=== PATIENT | male | born 1970 | race Caucasian/White ===

== ENCOUNTER 2016-11-30 07:16 | Emergency (ER) | payer BC ==
[2016-11-30 07:30] VITALS: BP 133/87
[2016-11-30] MEDS ORDERED: Ketorolac INJ* 60 MG/2 ML VIAL IM ONE (07:36)
--- NOTE | 2016-11-30 07:39 | UC ---
General HPI - HPI Summary HPI Summary: The patient comes in today for: 1. Right flank plank: Onset: 4-5 days ago. Palliative/provocative: Quality: Pressure Region: Right flank radiating down to the right testicle which feels like it is in a vice. Severity: 8.5/10 Time: Comes and goes. Associated symptoms: Previous disease: "A couple years ago" he had right flank pain and it was found to be from a kidney stone. He said that he passed. He has had gastric sleeve done and was told then that such a procedure increases his risk of kidney stones. Hematuria: Present. Urology: He has not seen one. Urinary frequency: He feels like he needs to urinate more. Urinary urgency: None. Dysuria: None. Kidney disease: None other than stones. * - History of Current Complaint Chief Complaint: UCAbdominalPain Stated Complaint: ABDOMINAL COMPLAINT Time Seen by Provider: 11/30/16 07:33 Hx Obtained From: Patient - Allergy/Home Medications Allergies/Adverse Reactions: Allergies Allergy/AdvReac Type Severity Reaction Status Date / Time enteric coating Allergy Hives Uncoded 08/31/16 06:31 PMH/Surg Hx/FS Hx/Imm Hx Previously Healthy: No - Gastric sleeve surgery. Endocrine History Of: Reports: Dyslipidemia Denies: Diabetes, Thyroid Disease, Hyperthyroidism, Hypothyroidism Cardiovascular History Of: Reports: Cardiac Disorders - stents after mi, Myocardial Infarction Denies: Hypertension, Pacemaker/ICD, Congestive Heart Failure, Atrial Fibrillation, Deep Vein Thrombosis, Bleeding Disorders Respiratory History Of: Denies: COPD, Asthma, Bronchitis, Pneumonia, Pulmonary Embolism GI/ History Of: Reports: Kidney Stones - 07/12 Denies: Gastroesophageal Reflux, Ulcer, Gastrointestinal Bleed, Gall Bladder Disease, Diverticulitis, Renal Disease, Urosepsis Neurological History Of: Denies: TIA, CVA, Dementia, Seizures, Migraine Psychological History Of: Denies: Anxiety, Depression, Bipolar Disorder, Schizophrenia, Post Traumatic Stress Disorder Cancer History Of: Denies: Lung Cancer, Colorectal Cancer, Breast Cancer, Prostate Cancer, Cervical Cancer Other History Of: Anticoagulant Therapy - Supposed to take 81 mg aspirin/day, but has been off x 1 mo. Negative For: HIV, Hepatitis B, Hepatitis C - Surgical History Surgical History: Yes Surgery Procedure, Year, and Place: 2014 cardiac stent, gastric sleeve - Family History Known Family History: Negative: Cardiac Disease, Hypertension - Social History Occupation: Employed Full-time Alcohol Use: None Substance Use Type: None Smoking Status (MU): Current Every Day Smoker Type: Cigarettes When Did the Patient Quit Smoking/Using Tobacco: 1.5months ago - uses nicotine lozengers Household Exposure Type: Cigarettes - Immunization History Most Recent Influenza Vaccination: never Most Recent Tetanus Shot: 2015 Most Recent Pneumonia Vaccination: never Review of Systems Constitutional: Negative Skin: Negative Eyes: Negative ENT: Negative Respiratory: Negative Cardiovascular: Negative Gastrointestinal: Negative Genitourinary: Frequency Musculoskeletal: Arthralgia All Other Systems Reviewed And Are Negative: Yes Physical Exam Triage Information Reviewed: Yes Appearance: Well-Appearing, Well-Nourished, Pain Distress - He is doing well with no grimacing, but is slow in movement. Vital Signs: Initial Vital Signs Temp 98.2 F 11/30/16 07:23 Pulse 75 11/30/16 07:23 Resp 16 11/30/16 07:23 BP 133/87 11/30/16 07:23 Pulse Ox 97 11/30/16 07:23 Vital Signs Reviewed: Yes Eyes: Positive: Conjunctiva Clear. Negative: Discharge ENT: Positive: Hearing grossly normal. Negative: Pharyngeal erythema, Nasal congestion, Nasal drainage, TM bulging, TM dull, TM red, Tonsillar swelling, Tonsillar exudate Dental: Negative: Gross Decay/Caries @, Dental Fracture @ Neck: Positive: Supple, Nontender, No Lymphadenopathy. Negative: Nuchal Rigidity Respiratory: Positive: Chest non-tender, Lungs clear, No respiratory distress, No accessory muscle use. Negative: Crackles, Wheezing Cardiovascular: Positive: RRR, No Murmur Abdomen Description: Positive: No Organomegaly, Soft, McBurney's Point Tenderness. Negative: Nontender - He had tenderness of the right lower quadrant area., Distended, Guarding, Peritoneal Signs, Pulsatile Mass Musculoskeletal: Positive: Strength Intact, ROM Intact, No Edema Neurological: Positive: Alert, Muscle Tone Normal Psychological: Positive: Age Appropriate Behavior, Consolable Skin: Negative: rashes, breakdown UC Physical Exam Vital Signs On Initial Exam: Initial Vitals Temp Pulse Resp BP Pulse Ox 98.2 F 75 16 133/87 97 11/30/16 07:23 11/30/16 07:23 11/30/16 07:23 11/30/16 07:23 11/30/16 07:23 - Genitalia Exam Male Genitalia: Other - Right testicular exam: No masses. Minimal tenderness by his report. Diagnostics - Laboratory Diagnostic Studies Completed/Ordered: Urine screen: Specific gravity: Blood: present. Protein: trace. WBC: None. Glucose: None. - Radiology No standard instances Xray Interpretation: Positive (See Comments) - Positive renal stone on the right. Course/Dx - Course Course Of Treatment: Patient told of his positive CT scan. He states that in the past, he has had similar abdominal pain/tenderness with his past renal stones. - Differential Dx - Multi-Symptom Provider Diagnoses: Bilateral renal stones. Discharge - Discharge Plan Condition: Stable Disposition: HOME Patient Education Materials: Kidney Stones (ED) Forms: *Work Release Referrals: John Yuan MD [Primary Care Provider] - Junior Palma MD [Medical Doctor] - As Soon As Possible (Please call the urologists office as soon as you can for follow up on your kidney stones.)
--- NOTE | 2016-11-30 08:26 | RAD ---
INDICATION: Right flank pain. History of renal stones. Prior gastric sleeve surgery. COMPARISON: None TECHNIQUE: Noncontrast axial source images were acquired from the level hemidiaphragms to the symphysis pubis as part of CT imaging for renal stone. Lung bases: The lung bases are clear. Liver: The liver is normal in size. Noncontrast imaging shows no evidence of a hepatic mass or ductal dilatation. Gallbladder: There are no calcified gallstones. There is no evidence of wall thickening or pericholecystic fluid.. Spleen: The spleen is normal in size. The noncontrast CT appearance is normal. Pancreas: Noncontrast imaging shows no pancreatic mass or ductal dilitation. Adrenal glands: No masses are identified. Kidneys/Bladder: There is a 3 mm calculus at the right UVJ with resultant moderate obstructive findings. There are additional nonobstructive right renal calculi in the upper and lower pole which measure 1 to 2 mm. On the left there is a 2 mm upper pole calculus and a 2 mm lower pole calculus there are no ureteral calculi. Adenopathy: There is no evidence of intraperitoneal or retroperitoneal adenopathy. Evaluation is limited without oral contrast. Fluid collections: There are no free or localized fluid collections. Vessels: The aorta and iliac vessels are normal in caliber. There are no significant atherosclerotic changes. The IVC appears normal Pelvic organs: The prostate and seminal vesicles appear normal GI tract: Evaluation of the bowel is limited without oral contrast. There is gastric sleeve surgery. The small bowel, and lower GI tract appear grossly normal. There are no obstructive findings. The appendix is visualized and appears normal. Soft tissues: No soft tissue abnormalities of the extraperitoneal abdomen or pelvis are identified. Osseous structures: There are no acute osseous findings. IMPRESSION: 3 MM RIGHT UVJ CALCULUS WITH MILD OBSTRUCTIVE FINDINGS. ADDITIONAL, BILATERAL, NONOBSTRUCTIVE RENAL CALCULI.
== END 2016-11-30 08:51 | disposition home or self-care (01) ==
LOC: UCEAST 07:16
DX: N20.0 Calculus of kidney (principal); Z87.442 Personal history of urinary calculi; E78.5 Hyperlipidemia, unspecified; I21.3 ST elevation (STEMI) myocardial infarction of unspecified site; Z95.5 Presence of coronary angioplasty implant and graft; Z98.84 Bariatric surgery status; F17.210 Nicotine dependence, cigarettes, uncomplicated
CPT/HCPCS: 74176; 81003; 99212; G0463; J1885

== ENCOUNTER 2017-06-21 11:23 | Emergency (ER) | payer BC ==
--- NOTE | 2017-06-21 12:26 | UC ---
Back Pain HPI - HPI Summary HPI Summary: 47 YEAR OLD MALE PRESENTS WITH BILATERAL FLANK PAIN RADIATING TO THE TESTICLES. - History of Current Complaint Stated Complaint: LOWER BACK PAIN/ TESTICULAR PAIN Time Seen by Provider: 06/21/17 12:25 Hx Obtained From: Patient Onset/Duration: Sudden Onset Timing: Constant Severity Initially: Moderate Severity Currently: Moderate Pain Scale Used: 0-10 Numeric - 8 - Allergies/Home Medications Allergies/Adverse Reactions: Allergies Allergy/AdvReac Type Severity Reaction Status Date / Time No Known Allergies Allergy Verified 06/21/17 13:17 Home Medications: Home Medications Atorvastatin* 80 mg PO 06/21/17 [History] PMH/Surg Hx/FS Hx/Imm Hx Other History Of: Anticoagulant Therapy - Supposed to take 81 mg aspirin/day, but has been off x 1 mo. Negative For: HIV, Hepatitis B, Hepatitis C - Surgical History Surgical History: Yes Surgery Procedure, Year, and Place: 2014 cardiac stent, gastric sleeve - Family History Known Family History: Positive: None - denies FMHx coronary artery disease Negative: Cardiac Disease, Hypertension - Social History Alcohol Use: None Substance Use Type: None Smoking Status (MU): Current Every Day Smoker Type: Cigarettes When Did the Patient Quit Smoking/Using Tobacco: 1.5months ago - uses nicotine lozengers Household Exposure Type: Cigarettes - Immunization History Most Recent Influenza Vaccination: never Most Recent Tetanus Shot: 2014 Most Recent Pneumonia Vaccination: never Review of Systems Constitutional: Negative Skin: Negative Eyes: Negative ENT: Negative Respiratory: Negative Cardiovascular: Negative Gastrointestinal: Abdominal Pain - BILATERAL FLANK PAIN Genitourinary: Hematuria Motor: Negative Neurovascular: Negative Musculoskeletal: Negative Neurological: Negative Psychological: Negative Is Patient Immunocompromised?: Yes All Other Systems Reviewed And Are Negative: Yes Physical Exam Triage Information Reviewed: Yes Eye Exam: Normal ENT Exam: Normal Dental Exam: Normal Neck exam: Normal Neck: Positive: 1 Respiratory Exam: Normal Cardiovascular Exam: Normal Abdomen Description: Positive: Other: - BILATERAL FLANK PAIN Musculoskeletal Exam: Normal Neurological Exam: Normal Psychological Exam: Normal Skin Exam: Normal Back Pain Course/Dx - Differential Dx/Diagnosis Provider Diagnoses: BILATERAL FLANK PAIN. HEMATURIA Discharge - Discharge Plan Condition: Stable Disposition: OTHER Discharge Disposition Comment: PATIENT SUGGESTED TO GO TO THE ER. Patient Education Materials: Hematuria (ED), Flank Pain (ED) Referrals: Ramiro Osborne MD [Primary Care Provider] - Additional Instructions: patient suggested to go to er to rule out renal calculi. and severe flank pain.
[2017-06-21 12:28] VITALS: BP 106/64
== END 2017-06-21 12:39 ==
LOC: UCEAST 11:23
DX: R10.9 Unspecified abdominal pain (principal); F17.210 Nicotine dependence, cigarettes, uncomplicated; R31.9 Hematuria, unspecified
CPT/HCPCS: 81003; 99212; G0463

== ENCOUNTER 2017-06-21 13:10 | Emergency (ER) | payer BC ==
[2017-06-21] MEDS ORDERED: NS 0.9% 1000 ML* 1,000 ML IV ONE (13:40)
[2017-06-21] MEDS ORDERED: Ondansetron INJ* 2 MG/ML VIAL IV ONE (13:40)
[2017-06-21] MEDS ORDERED: Ketorolac INJ* 30 MG/ML 1 ML VIAL IV ONE (13:40)
--- NOTE | 2017-06-21 14:09 | RAD ---
INDICATION: Abdominal pain. History of kidney stones. COMPARISON: CT November 30, 2016 TECHNIQUE: Noncontrast axial source images were acquired from the level hemidiaphragms to the symphysis pubis as part of CT imaging for renal stone. Lung bases: The lung bases are clear. Liver: The liver is normal in size. Noncontrast imaging shows no evidence of a hepatic mass or ductal dilatation. Gallbladder: There are no calcified gallstones. There is no evidence of wall thickening or pericholecystic fluid.. Spleen: The spleen is normal in size. The noncontrast CT appearance is normal. Pancreas: Noncontrast imaging shows no pancreatic mass or ductal dilitation. Adrenal glands: No masses are identified. Kidneys/Bladder: There is a 3 to 4 mm right UVJ calculus producing mild obstructive findings. There are additional tiny nonobstructive renal calculi bilaterally which measure 1 to 2 mm. There is no renal mass on noncontrast evaluation. Adenopathy: There is no evidence of intraperitoneal or retroperitoneal adenopathy. Evaluation is limited without oral contrast. Fluid collections: There are no free or localized fluid collections. Vessels: The aorta and iliac vessels are normal in caliber. There are no significant atherosclerotic changes. The IVC appears normal Pelvic organs: The uterus and adnexa appear normal GI tract: There is bariatric surgery. The upper GI tract is otherwise unremarkable. The lower GI tract including the appendix appears normal aside from scant diverticula of the sigmoid colon. Soft tissues: No soft tissue abnormalities of the extraperitoneal abdomen or pelvis are identified. Osseous structures: There are no acute osseous findings. There is spurring involving the anterior superior aspect of the L4 vertebral body with a detached bony fragment appearing unchanged and likely related to prior trauma. IMPRESSION: 3 TO 4 MM RIGHT UVJ CALCULUS WITH MILD OBSTRUCTIVE FINDINGS. ADDITIONAL NONOBSTRUCTIVE RENAL CALCULI. BARIATRIC SURGERY.
[2017-06-21 14:30] LABS: Hematocrit 40 % (42-52); Hemoglobin 13.8 g/dl (14.0-18.0); Mean Corpuscular HGB Conc 34 g/dl (31-36); Mean Corpuscular Hemoglobin 32 pg (27-31); Mean Corpuscular Volume 94 fL (80-94); Mean Platelet Volume 8 um3 (7.4-10.4); Red Blood Count 4.26 10^6/ul (4.0-5.4); Red Cell Distribution Width 13 % (10.5-15); White Blood Count 8.6 10^3/ul (3.5-10.8)
[2017-06-21 14:51] LABS: ALT 11 U/L (7-52); AST 13 U/L (13-39); Albumin 3.7 g/dL (3.2-5.2); Alkaline Phosphatase 74 U/L (34-104); Anion Gap 2 mmol/L (2-11); BUN/Creatinine Ratio 13.9 (8-20); Blood Urea Nitrogen 11 mg/dL (6-24); C Reactive Protein < 1.00 mg/L (< 5.00); CO2 Carbon Dioxide 29 mmol/L (22-32); Calcium 8.8 mg/dL (8.6-10.3); Chloride 109 mmol/L (101-111); EGFR African American 136.4 (>60); EGFR Non-African American 106.1 (>60); Globulin 2.5 g/dL (2-4); Glucose 83 mg/dL (70-100); Lipase 22 U/L (11.0-82.0); Potassium 3.5 mmol/L (3.5-5.0); Sodium 140 mmol/L (133-145); Total Protein 6.2 g/dL (6.4-8.9)
[2017-06-21] MEDS ORDERED: Pantoprazole TAB (NF) 40 MG TAB PO ONE (14:52)
[2017-06-21] MEDS ORDERED: Omeprazole CAP* 20 MG PO ONE (15:00)
[2017-06-21 15:02] LABS: Urine Bacteria Absent (Absent); Urine Bilirubin Negative (Negative); Urine Glucose Negative (Negative); Urine Nitrite Negative (Negative)
[2017-06-21 16:33] VITALS: BP 118/74
--- NOTE | 2017-06-22 18:33 | ED ---
Reginald Hightower Angela, scribed for John Roberson MD on 06/21/17 at 1414 . Abdominal Pain/Male - HPI Summary HPI Summary: This pt is a 47 y/o male [facility] c/o bilateral flank pain x3-6 days. Pt reports that he has pain radiating for his right side to his right testicle. Pt states he also has pain on his left side. He currently rates his pain 6/10 in severity. He has a history of kidney stones and states that this feels like it. Pt additionally c/o nausea and cold sweats. He denies fever, vomiting. Pt has not taken any pain medications. PMHx: kidney stones, his last one was approximately 6 months ago. - History of Current Complaint Chief Complaint: EDAbdPain Stated Complaint: FLANK PAIN,BLOOD IN URINE-SENT FROM Time Seen by Provider: 06/21/17 13:57 Hx Obtained From: Patient Onset/Duration: Lasting Days, Still Present Timing: Lasting Days Pain Intensity: 6 Pain Scale Used: 0-10 Numeric Location: Flank - bilateral Radiates: Yes Radiates to: Other - right testicle Associated Signs And Symptoms: Positive: Nausea, Other - cold sweats.. Negative : Fever, Vomiting, Diarrhea - Allergies/Home Medications Allergies/Adverse Reactions: Allergies Allergy/AdvReac Type Severity Reaction Status Date / Time No Known Allergies Allergy Verified 06/21/17 13:17 PMH/Surg Hx/FS Hx/Imm Hx Endocrine/Hematology History: Reports: Hx Anticoagulant Therapy - Supposed to take 81 mg aspirin/day, but has been off x 1 mo. Denies: Hx Diabetes, Hx Thyroid Disease Cardiovascular History: Reports: Hx Angina, Hx Coronary Artery Disease, Hx Hypercholesterolemia, Hx Myocardial Infarction, Other Cardiovascular Problems/ Disorders - stent 10/2104 Denies: Hx Congestive Heart Failure, Hx Deep Vein Thrombosis, Hx Hypertension , Hx Pacemaker/ICD, Hx Peripheral Vascular Disease, Hx Valvular Heart Disease Respiratory History: Reports: Hx Sleep Apnea, Other Respiratory Problems/ Disorders - smoker, current cough Denies: Hx Asthma, Hx Chronic Obstructive Pulmonary Disease (COPD), Hx Lung Cancer, Hx Pneumonia, Hx Pulmonary Embolism GI History: Denies: Hx Cirrhosis, Hx Gall Bladder Disease, Hx Gastrointestinal Bleed, Hx Ulcer, Hx Urosepsis History: Reports: Hx Kidney Stones - 07/12 Denies: Hx Renal Disease Musculoskeletal History: Reports: Hx Back Problems, Hx Gout Denies: Hx Arthritis, Hx Osteoporosis Sensory History: Denies: Hx Cataracts, Hx Contacts or Glasses, Hx Glaucoma, Hx Hearing Aid Opthamlomology History: Denies: Hx Cataracts, Hx Contacts or Glasses, Hx Glaucoma Neurological History: Denies: Hx Dementia, Hx Headaches, Hx Migraine, Hx Seizures, Hx Transient Ischemic Attacks (TIA) Psychiatric History: Denies: Hx Anxiety, Hx Depression, Hx Schizophrenia, Hx Bipolar Disorder - Surgical History Surgery Procedure, Year, and Place: 2014 cardiac stent, gastric sleeve Hx Anesthesia Reactions: No Infectious Disease History: No Infectious Disease History: Denies: Hx Hepatitis, Hx Human Immunodeficiency Virus (HIV), History Other Infectious Disease, Traveled Outside the [place] in Last 30 Days - Family History Known Family History: Negative: Cardiac Disease, Hypertension - Social History Alcohol Use: None Substance Use Type: Reports: None Hx Tobacco Use: Yes Smoking Status (MU): Current Every Day Smoker Type: Cigarettes Review of Systems Negative: Fever, Chills Eyes: Negative ENT: Negative Cardiovascular: Negative Positive: Nausea. Negative: Vomiting Positive: flank pain - bilateral Skin: Negative Neurological: Negative All Other Systems Reviewed And Are Negative: Yes Physical Exam - Summary Physical Exam Summary: VITAL SIGNS: Reviewed. GENERAL: Patient is a well-developed and nourished male who is lying comfortable in the stretcher. Patient is not in any acute respiratory distress. HEAD AND FACE: Normocephalic and atraumatic. EYES: PERRLA, EOMI x 2, No injected conjunctiva. EARS: Hearing grossly intact. Ear canals and tympanic membranes are WNL. MOUTH: Oropharynx within normal limits. NECK: Supple, trachea is midline, no adenopathy, no JVD. CHEST: Symmetric, no tenderness at palpation LUNGS: Clear to auscultation bilaterally. No wheezing or crackles. CVS: RRR, S1 and S2 present, no murmurs or gallops appreciated. ABDOMEN: Soft, non-tender. No signs of distention. Positive bowel sounds. No rebound no guarding, and no masses palpated. No abdominal bruit or pulsations. There is bilateral costovertebral angle tenderness. EXTREMITIES: FROM in all major joints, no edema, no cyanosis or clubbing. NEURO: Alert and oriented x 3. No acute neurological deficits. Speech is normal. SKIN: Dry and warm Triage Information Reviewed: Yes Vital Signs On Initial Exam: Initial Vitals Temp Pulse Resp BP Pulse Ox 97.5 F 77 16 127/82 100 06/21/17 13:17 06/21/17 13:17 06/21/17 13:17 06/21/17 13:17 06/21/17 13:17 Vital Signs Reviewed: Yes Diagnostics - Vital Signs Vital Signs Temp Pulse Resp BP Pulse Ox 06/21/17 13:17 97.5 F 77 16 127/82 100 - Laboratory Lab Results: Lab Results 06/21/17 06/21/17 06/21/17 Range/Units 14:15 14:15 14:46 WBC 8.6 (3.5-10.8) 10^3/ul RBC 4.26 (4.0-5.4) 10^6/ul Hgb 13.8 L (14.0-18.0) g/dl Hct 40 L (42-52) % MCV 94 (80-94) fL MCH 32 H (27-31) pg MCHC 34 (31-36) g/dl RDW 13 (10.5-15) % Plt Count 231 (150-450) 10^3/ul MPV 8 (7.4-10.4) um3 Neut % (Auto) 53.5 (38-83) % Lymph % (Auto) 36.2 (25-47) % [place] % (Auto) 7.4 (1-9) % Eos % (Auto) 2.4 (0-6) % Baso % (Auto) 0.5 (0-2) % Absolute Neuts (auto) 4.6 (1.5-7.7) 10^3/ul Absolute Lymphs (auto) 3.1 (1.0-4.8) 10^3/ul Absolute Monos (auto) 0.6 (0-0.8) 10^3/ul Absolute Eos (auto) 0.2 (0-0.6) 10^3/ul Absolute Basos (auto) 0 (0-0.2) 10^3/ul Absolute Nucleated RBC 0 10^3/ul Nucleated RBC % 0 Sodium 140 (133-145) mmol/L Potassium 3.5 (3.5-5.0) mmol/L Chloride 109 (101-111) mmol/L Carbon Dioxide 29 (22-32) mmol/L Anion Gap 2 (2-11) mmol/L BUN 11 (6-24) mg/dL Creatinine 0.79 (0.67-1.17) mg/dL Est GFR ( Amer) 136.4 (>60) Est GFR (Non-Af Amer) 106.1 (>60) BUN/Creatinine Ratio 13.9 (8-20) Glucose 83 (70-100) mg/dL Calcium 8.8 (8.6-10.3) mg/dL Total Bilirubin 0.40 (0.2-1.0) mg/dL AST 13 (13-39) U/L ALT 11 (7-52) U/L Alkaline Phosphatase 74 (34-104) U/L C-Reactive Protein < 1.00 (< 5.00) mg/L Total Protein 6.2 L (6.4-8.9) g/dL Albumin 3.7 (3.2-5.2) g/dL Globulin 2.5 (2-4) g/dL Albumin/Globulin Ratio 1.5 (1-3) Lipase 22 (11.0-82.0) U/L Urine Color Yellow Urine Appearance Cloudy Urine pH 7.0 (5-9) Ur Specific [place] 1.019 (1.010-1.030) Urine Protein Negative (Negative) Urine Ketones Negative (Negative) Urine Blood 3+ H (Negative) Urine Nitrate Negative (Negative) Urine Bilirubin Negative (Negative) Urine Urobilinogen Positive H (Negative) Ur Leukocyte Esterase Negative (Negative) Urine WBC (Auto) Trace(0-5/hpf) (Absent) Urine RBC (Auto) 3+(>10/hpf) H (Absent) Urine Bacteria Absent (Absent) Urine Glucose Negative (Negative) Result Diagrams: 06/21/17 14:15 06/21/17 14:15 Lab Statement: Any lab studies that have been ordered have been reviewed, and results considered in the medical decision making process. - CT Abdomen/pelvis CT CT Interpretation: Positive (See Comments) - IMPRESSION: 3 to 4 mm right UVJ calculus with mild obstructive findings. Additional nonobstructing renal calculi. Bariatric surgery. ED physician has reviewed this radiology report and agrees. CT Interpretation Completed By: Radiologist Abdominal Pain Fem Course/Dx - Course Assessment/Plan: This pt is a 47 y/o male presenting to [facility] c/o bilateral flank pain x3-6 days. Pt reports that he has pain radiating for his right side to his right testicle. Pt states he also has pain on his left side. He currently rates his pain 6/10 in severity. He has a history of kidney stones and states that this feels like it. Pt additionally c/o nausea and cold sweats. He denies fever, vomiting. Pt has not taken any pain medications. PMHx: kidney stones, his last one was approximately 6 months ago. Tests results without any significant abnormal except for slight anemia. Abdomen/Pelvis CT shows 3 to 4 mm right UVJ calculus with mild obstructive findings. Additional nonobstructing renal calculi. Bariatric surgery. In the ED course, the pt was given IV fluids , Zofran for nausea, and Toradol for the pain. Pt requested protonix for his GERD. After these medications his symptoms have improved. Therefore, he will be discharged home with follow up from his PCP. - Diagnoses Differential Diagnosis/HQI/PQRI: Bowel Obstruction, Constipation, Renal Colic, Ureteral Stone, Urinary Tract Infection Provider Diagnoses: Kidney stones Discharge - Discharge Plan Condition: Stable Disposition: HOME Prescriptions: oxyCODONE TAB* [Roxycodone TAB 5 mg*] 5 mg PO Q6H PRN #12 tab MDD 4 PRN Reason: Pain Patient Education Materials: Kidney Stones (ED) Referrals: Ramiro Osborne MD [Primary Care Provider] - Additional Instructions: Please follow up with your primary care provider. RETURN TO THE ED FOR ANY WORSENING SYMPTOMS. The documentation as recorded by the Reginald lima Angela accurately reflects the service I personally performed and the decisions made by , John Roberson MD.
== END 2017-06-21 16:34 | disposition home or self-care (01) ==
LOC: ED 13:10
DX: N20.2 Calculus of kidney with calculus of ureter (principal); Z87.442 Personal history of urinary calculi; R11.0 Nausea; R68.83 Chills (without fever); E07.9 Disorder of thyroid, unspecified; I25.119 Atherosclerotic heart disease of native coronary artery with unspecified angina pectoris; Z95.5 Presence of coronary angioplasty implant and graft; I21.9 Acute myocardial infarction, unspecified; E78.00 Pure hypercholesterolemia, unspecified; F17.210 Nicotine dependence, cigarettes, uncomplicated
CPT/HCPCS: 36415; 74176; 80053; 81003; 81015; 83690; 85025; 86140; 96374; 96375; 99283; A9270-GY; J1885; J2405

== ENCOUNTER 2019-08-23 12:13 | Emergency (ER) | payer BC ==
[2019-08-23 12:27] VITALS: BP 114/71
--- NOTE | 2019-08-23 12:34 | UC ---
Dental HPI - HPI Summary HPI Summary: 49 yo male presents with sinus symptoms. He tells me that over the last 5 days he has had sinus pain/pressure/congestion. Over the last day has noticed increased pain/pressure on the right side with right earache and right upper toothache. Has been taking dayquill OTC with no relief. Denies fever, chills, sore throat, cough. - History of Current Complaint Chief Complaint: UCGeneralIllness Stated Complaint: SINUS ISSUE EAR PAIN DENTAL PAIN Time Seen by Provider: 08/23/19 12:33 Hx Obtained From: Patient Onset/Duration: Gradual Onset Severity: Moderate Pain Intensity: 6 Pain Scale Used: 0-10 Numeric - Allergies/Home Medications Allergies/Adverse Reactions: Allergies Allergy/AdvReac Type Severity Reaction Status Date / Time No Known Allergies Allergy Verified 06/21/17 13:17 Home Medications: Home Medications Omeprazole 1 tab PO DAILY 08/23/19 [History Confirmed 08/23/19] PMH/Surg Hx/FS Hx/Imm Hx Endocrine History: Dyslipidemia Cardiovascular History: Cardiac Disease GI/ History: Gastroesophageal Reflux Other History Of: Anticoagulant Therapy - Supposed to take 81 mg aspirin/day, but has been off x 1 mo. Negative For: HIV, Hepatitis B, Hepatitis C - Surgical History Surgical History: Yes Surgery Procedure, Year, and Place: 2014 cardiac stent, gastric sleeve - Family History Known Family History: Positive: None - denies FMHx coronary artery disease Negative: Cardiac Disease, Hypertension - Social History Lives: With Family Alcohol Use: None Substance Use Type: None Smoking Status (MU): Current Every Day Smoker Type: Cigarettes When Did the Patient Quit Smoking/Using Tobacco: 1.5months ago - uses nicotine lozengers Household Exposure Type: Cigarettes - Immunization History Most Recent Influenza Vaccination: never Most Recent Tetanus Shot: 2014 Most Recent Pneumonia Vaccination: never Review of Systems All Other Systems Reviewed And Are Negative: No Constitutional: Positive: Negative Skin: Positive: Negative Eyes: Positive: Negative ENT: Positive: Ear Ache, Nasal Discharge, Sinus Congestion, Sinus Pain/ Tenderness Respiratory: Positive: Negative Cardiovascular: Positive: Negative Gastrointestinal: Positive: Negative Neurological: Positive: Negative Psychological: Positive: Negative Physical Exam - Summary Physical Exam Summary: GENERAL: NAD. WDWN. No pain distress. SKIN: No rashes, sores, lesions, or open wounds. HEENT: Head: AT/NC Eyes: EOM intact. Conjunctiva clear without inflammation or discharge. Ears: Hearing grossly normal. TMs intact, no bulging, erythema, or edema. Nose: Nasal mucosa mildly swollen and erythematous with yellow/ clear discharge. TTP maxillary sinus RIGHT > LEFT. Positive post nasal drip Throat: Posterior oropharynx without exudates, erythema, or tonsillar enlargement. Uvula midline. NECK: Supple. Nontender. No lymphadenopathy. CHEST: CTAB. No r/r/w. No accessory muscle use. Breathing comfortably and in no distress. CV: RRR. Pulses intact. NEURO: Alert. PSYCH: Age appropriate behavior. Triage Information Reviewed: Yes Vital Signs: Initial Vital Signs Temp 98 F 08/23/19 12:23 Pulse 84 08/23/19 12:23 Resp 18 08/23/19 12:23 BP 114/71 08/23/19 12:23 Pulse Ox 100 08/23/19 12:23 Vital Signs Reviewed: Yes Dental Complaint Course/Dx - Course Course Of Treatment: sinusitis - Differential Dx/Diagnosis Provider Diagnosis: Sinusitis Discharge ED - Sign-Out/Discharge Documenting (check all that apply): Patient Departure All imaging exams completed and their final reports reviewed: No Studies - Discharge Plan Condition: Stable Disposition: HOME Prescriptions: Amoxicillin PO (*) [Amoxicillin 875 MG (*)] 875 mg PO BID #14 tab Patient Education Materials: Sinusitis (ED) Referrals: No Primary Care Phys,NOPCP [Primary Care Provider] - Additional Instructions: If you develop a fever, shortness of breath, chest pain, new or worsening symptoms - please call your PCP or go to the ED immediately. - Billing Disposition and Condition Condition: STABLE Disposition: Home
== END 2019-08-23 12:47 | disposition home or self-care (01) ==
LOC: UCEAST 12:13
DX: J32.9 Chronic sinusitis, unspecified (principal); K21.9 Gastro-esophageal reflux disease without esophagitis; F17.210 Nicotine dependence, cigarettes, uncomplicated; Z79.899 Other long term (current) drug therapy
CPT/HCPCS: 99212; G0463